=== PATIENT | female | born 1945 | race Caucasian/White ===

== ENCOUNTER → 2025-03-02 | Outpatient (CLI) | payer MEDICARE, BC, SELFPAY ==
--- NOTE | 2025-03-02 09:30 | XR_ITS ---
Examination: Esophagram standard Fluoroscopy 19 spot fluoroscopic films of the esophagus Upright PA chest single view Upright soft tissue lateral neck single view Date and time: March 02, 2025 1003 hours INDICATIONS: Difficulty swallowing with abdominal pain 3 months TECHNIQUE AND FINDINGS: Upright PA chest demonstrates large retrocardiac gastric hernia Soft tissue lateral neck demonstrates cervical fusion C5-C7 with satisfactory alignment, advanced degenerative disc disease C4-C5 Prevertebral soft tissue does appear prominent at the C6 level measuring up to 24 mm Patient swallowed thin barium with marked esophageal dysmotility, secondary and tertiary esophageal contractions and esophageal spasm, moderate intermittent gastroesophageal reflux Large retrocardiac gastric hernia with prominent narrowing at the gastroesophageal junction, up to 80% IMPRESSION: Large retrocardiac gastric hernia Prominent narrowing at the gastroesophageal junction, differential would include reflux esophagitis, consider endoscopy follow-up with specific attention to the distal esophagus Also abnormal prevertebral soft tissue prominence, recommend CT soft tissue neck post intravenous contrast follow-up
== END | disposition home or self-care (01) ==
LOC: CDIM 09:22
PROVIDERS: PCP Family Medicine; Referring Provider Family Medicine; Visit Provider Family Medicine
DX: K46.9 Unspecified abdominal hernia without obstruction or gangrene (principal); K31.89 Other diseases of stomach and duodenum
CPT/HCPCS: 74220; A4699

== ENCOUNTER 2025-08-02 08:00 | Day surgery (SDC) | payer MEDICARE, BC, SELFPAY ==
[2025-08-01 14:55] VITALS: BMI 30.4
[2025-08-02 08:47] VITALS: BP 153/68; PULSE 75; RESP 18; TEMP 36.6; O2SAT 98; BMI 30.7
--- NOTE | 2025-08-02 09:18 | EKG_ITS ---
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
--- NOTE | 2025-08-02 09:50 | SUR.PREOP ---
15 INFORMED OF IRREGULAR HEART RHYTHM. ORDERS 12 LEAD EKG. 924 EKG PERFORMED WITH RESULTS OF A-FIB WITH RVR AND PVC's. INFORMED. ORDERS TO CANCEL PROCEDURE AND TRANSFER PATIENT TO ER FOR FURTHER EVALUATION. DR. MOJICA ORDERS TO LEAVE IV IN PLACE. 929 PATIENT INFORMED OF PLAN, ALL QUESTIONS ANSWERED. 34 [facility] CALLED FOR AMBULANCE TRANSPORT. 935 PER PATIENT'S REQUEST, CALL TO PATIENT'S STEPSON TYESHA DONE TO INFORM HIM OF PLAN. 935 [facility] ER INFORMED OF TRANSFER, REPORT GIVEN TO VETO RIOS. 0945 [facility] ARRIVED TO [facility], PATIENT BEING EVALUATED BY EMS. 0950 REPORT GIVEN TO EMS PERSONNEL LAST NAME ARZOLA. PATIENT LEFT VIA AMBULANCE WITH IV IN PLACE.
--- NOTE | 2025-08-02 09:50 | SUR.PREOP ---
PATIENT BELONGINGS INCLUDING DENTURES SENT WITH PATIENT TO ER, GIVEN TO EMS.
== END 2025-08-02 09:50 | disposition short-term general hospital (02) ==
PROVIDERS: PCP Family Medicine; Referring Provider Specialist; Visit Provider Specialist
PROC: (CPT 43239; principal; 2025-08-02 10:30)
DX: R13.10 Dysphagia, unspecified (principal); R10.13 Epigastric pain; I10 Essential (primary) hypertension; Z79.899 Other long term (current) drug therapy; Z53.8 Procedure and treatment not carried out for other reasons
CPT/HCPCS: 93005

== ENCOUNTER 2025-08-02 09:56 | Inpatient (IN) | payer MEDICARE, BC, SELFPAY ==
[2025-08-02] VITALS (9 sets, daily range): BP systolic 134–163; BP diastolic 76–96; PULSE 76–140; RESP 16–19; TEMP 36.1–36.7; O2SAT 95–97; BMI 30.4; BMI 29.7
--- NOTE | 2025-08-02 10:19 | EKG_ITS ---
[facility] Test Date: 2025-08-02 Pat Name: JOSE GUTIÉRREZ Department: Room: - Gender: Female Grid Maker: : 1945 Requested By: ED Temporary Provider Order Number: [id number] Reading MD: ED Temporary Provider Measurements Intervals [place] Rate: 86 P: IN: QRS: -85 QRSD: 121 T: -23 QT: 338 QTc: 406 Interpretive Statements ATRIAL FIBRILLATION LEFT AXIS DEVIATION [QRS AXIS < -30] RIGHT BUNDLE BRANCH BLOCK [120+ ms QRS DURATION, UPRIGHT V1, 40+ ms S IN I/aVL/V4/V5/V6] Compared to ECG 08/02/2025 10:22:09 Left-axis deviation now present Right-axis deviation no longer present /store/S0/[id number].pdf
[2025-08-02 12:11] LABS: Alanine Aminotransferase 13 U/L (10-49); Albumin, Serum 5.2 gm/dL (3.4-4.8); Albumin/Globulin Ratio 1.5 (1.2-2.2); Alkaline Phosphatase 73 U/L (46-116); Anion Gap 13 (7-16); Aspartate Amino Transferase 27 U/L (0-34); BUN/Creatinine Ratio 14 Ratio (12-20); Bilirubin,Total 0.7 mg/dL (0.3-1.2); Blood Urea Nitrogen 15 mg/dL (9-23); Calcium 10.3 mg/dL (8.3-10.6); Calcium (Corrected) 10.3 mg/dL (8.5-10.1); Carbon Dioxide 25.0 mMol/L (20.0-31.0); Chloride 106 mMol/L (98-107); Creatinine (Component) 1.1 mg/dL (0.6-1.3); Estimated Creatinine Clearance 43.5 mL/min (>60); Globulin 3.5 gm/dL (2.3-3.5); Glucose 88 mg/dL (74-106); Osmolality,Calculated 286 (275-295); Potassium 3.9 mMol/L (3.4-5.1); Sodium 144 mMol/L (136-145); Total Protein 8.7 gm/dL (5.7-8.2); Troponin I < 0.020 ng/mL (0.0-0.045); eGFR 50 See Note
[2025-08-02 12:19] LABS: B-Type Natriuretic Peptide 87 pg/mL (0-100)
[2025-08-02 12:26] LABS: Basophils # (Auto) 0.0 Thou/mm3 (0.0-0.2); Basophils % (Auto) 1 % (0-2.5); Eosinophils # (Auto) 0.1 Thou/mm3 (0.0-0.5); Eosinophils % (Auto) 1 % (0-10); Hematocrit 47.1 % (36.0-46.0); Hemoglobin 15.8 g/dL (12.0-16.0); Immature Granulocytes Auto 0.02 Thou/mm3 (0.00-0.00); Lymphocytes # (Auto) 2.0 Thou/mm3 (1.0-4.8); Lymphocytes % (Auto) 30 % (10-50); Mean Corpuscular HGB Conc 33.5 g/dl (31.0-37.0); Mean Corpuscular Hemoglobin 30.9 pg (25.0-35.0); Mean Corpuscular Volume 92 fL (80-100); Monocytes # (Auto) 0.7 Thou/mm3 (0.0-0.8); Monocytes % (Auto) 10 % (0-12); Neutrophils # (Auto) 3.9 Thou/mm3 (1.8-7.7); Neutrophils % (Auto) 58 % (37-80); Nucleated Red Blood Cell # 0.00 Thou/mm3 (0.00-0.00); Nucleated Red Blood Cell % 0 /100 WBC (0); Platelet Count 201 Thou/mm3 (140-440); RDW Standard Deviation 40.8 fL (36.4-46.3); Red Blood Count 5.11 Miln/mm3 (4.00-5.20); White Blood Count 6.7 Thou/mm3 (3.6-11.0)
[2025-08-02] MEDS: HYDROcodone/APAP 5/325 TABLET 1 TAB PO (15:39)
--- NOTE | 2025-08-02 15:46 | PD.EDARRY ---
ED Arrhythmia Palp. RME/HPI General Chief Complaint: Arrhythmia/Palpitations Stated Complaint: PALPITATIONS Time Seen by Provider: 08/02/25 10:48 Arrival date/time: 08/02/25 09:56 Limitations: no limitations RME / HPI RME / HPI narrative: 80 year old female presents to the ED BIBA from GI Dr. Vazquez's office for evaluation of elevated heart rate and palpitations today. Per medics report, the patient was scheduled to have an EGD by Dr. Vazquez for dysphagia today and prior to the procedure, noted her heart rate to be elevated. A 12-lead EKG performed showing atrial fibrillation. No medications administered en route. In the ED, patient only complains of feeling hungry. Otherwise, no other associated symptoms or complaints reported. Denies fevers, chills, chest pain, cough, shortness of breath. Related Data Home Medications ?Medication ?Instructions ?Recorded ?Confirmed amlodipine 5 mg tablet 5 mg PO QDAY 08/01/25 08/02/25 cinacalcet 60 mg tablet 60 mg PO QDAY 08/01/25 08/02/25 ergocalciferol (vitamin D2) 1,250 1,250 mcg PO QWEEK 08/01/25 08/02/25 mcg (50,000 unit) capsule furosemide 20 mg tablet 20 mg PO QDAY 08/01/25 08/02/25 hydrocodone 10 mg-acetaminophen 1 tab PO Q6H PRN pain 08/01/25 08/02/25 325 mg tablet risedronate 35 mg tablet 35 mg PO QWEEK 08/01/25 08/02/25 Allergies Allergy/AdvReac Type Severity Reaction Status Date / Time No Known Allergies Allergy Verified 08/02/25 10:04 Review of Systems Review of Systems Systems Reviewed: All systems reviewed, normal except as documented Past Medical History Past Medical History CARDIAC: Positive Cardiac Disorders, Hypertension and Varicose Veins RESPIRATORY: Positive Bronchitis GASTROINTESTINAL: Positive Gastrointestinal Disorders (CONSTIPATION, MILD DYSPHAGIA AT TIMES), Diverticulitis, Irritable Bowel, Hiatal Hernia and Obesity GENITOURINARY: Positive Genitourinary Disorders and Renal Disease (BEING FOLLOWED BY UROLOGIST) REPRODUCTIVE: Positive Previous Pregnancies MUSCULOSKELETAL: Positive Musculoskeletal Disorders and Arthritis ENT: Positive Deafness (MILD TRIBE) Surgical History SURGICAL: Positive Hysterectomy; Negative Pacemaker Social History SMOKING STATUS: Never smoker SUBSTANCE USE: does not use ED Exam General Limitations: Present no limitations General appearance: Present alert and in no apparent distress Head Head exam: Present atraumatic, normocephalic and normal inspection Eye Eye exam: Present normal appearance, PERRL and EOMI ENT ENT exam: Present normal exam, normal oropharynx and mucous membranes moist Neck Neck exam: Present normal inspection, full ROM and trachea midline Chest Chest inspection: Present normal inspection and symmetric chest wall rise Respiratory Respiratory exam: Present normal lung sounds bilaterally Cardiovascular Cardiovascular exam: Present tachycardia, irregular rhythm and normal heart sounds Abdominal Exam Abdominal exam: Present soft and normal bowel sounds Extremities Exam Extremities exam: Present normal inspection and full ROM Back Exam Back exam: Present normal inspection and full ROM Neurological Exam Neurological exam: Present alert, oriented X3 and CN II-XII intact Psychiatric Psychiatric exam: Present normal affect and normal mood Skin Skin exam: Present warm, dry, intact and normal color Course Quality Measures none Orders Category Date Time Status COVID-19 Screening Questionnaire NOW Care 08/02/25 15:37 Active Decision to Admit X1 Care 08/02/25 15:37 Completed EKG (ED ONLY) *Do not use* NOW Care 08/02/25 10:19 Completed EKG (ED ONLY) *Do not use* NOW Care 08/02/25 15:24 Completed EKG (ED Only) Stat Exams 08/02/25 10:19 Draft EKG (ED Only) Stat Exams 08/02/25 15:24 Ordered BNP [B-Type Natriuretic Peptide] Stat Lab 08/02/25 10:25 Completed CBC Stat Lab 08/02/25 10:25 Completed CMP [Comprehensive Metabolic Panel] Stat Lab 08/02/25 10:25 Completed TSH [Thyroid Stimulating Hormone] Stat Lab 08/02/25 15:42 Ordered Troponin I Stat Lab 08/02/25 10:25 Completed HYDROcodone*/APAP 5/325 [[place] 5/325] Med 08/02/25 13:59 Discontinued 1 tab PO X1 ONE Vital Signs Vital signs: Vital Signs Temperature 98.0 F 08/02/25 10:09 Pulse Rate 130 H 08/02/25 10:09 Respiratory Rate 18 08/02/25 10:09 Blood Pressure 163/91 H 08/02/25 10:09 Pulse Oximetry (%) 97 08/02/25 10:09 Oxygen Delivery Method Room Air 08/02/25 10:09 Arrhythmia/Palpitations MDM Narrative MDM Narrative:: I, Maria Luisamily Adame, am scribing for and in the presence of Dr. Gamino. I spoke with hospitalist team B for admission. Patient data External records reviewed:: [facility] previous records and EMS form Clinical information provided by:: patient and EMS Social determinants that could affect healthcare access:: none Patient has the following chronic illnesses:: Diabetes How is presenting disease/condition affected by chronic disease/condition?: uneffected by Evaluation data The following diagnostics were reviewed and interpreted by me:: lab results, radiology exam(s) and EKG tracing(s) (EKG @ 1022a shows atrial fibrillation with RVR, rate 126, right bundle branch block. EKG @ 1527p. Atrial fibrillation, rate 86, right bundle branch block. ) Lab and/or radiology exams considered but not ordered:: None Interpretation Summary: Ordering Physician: Jakob Mcguire Date of Service: 08/02/25 Procedure(s): XR chest 1V portable Accession Number(s): [id number] cc: Jakob Mcguire; Dane Conroy MD; Ross Álvarez MD~ EXAMINATION: AP chest single view TECHNIQUE: AP portable upright chest single view Date and time: August 02, 2025, 1619 hours, comparison January 10, 2021 INDICATIONS: Chest pain shortness of breath today. FINDINGS: Retrocardiac gastric hernia Mild prominence cardiac contour Mild vascular congestion. No lobar pneumonia or pulmonary edema Suspicious for 8 mm nodule left upper lobe Prominent osteopenia IMPRESSION: Mild vascular congestion. No lobar pneumonia. Recommend AP lordotic chest follow-up to exclude 8 mm pulmonary nodule left upper lobe Dictated By: Dane Conroy MD Signed By: <Electronically signed by Dane Conroy MD in OV> 08/02/25 1652 Medications / Prescriptions Medications or Prescriptions considered but not ordered:: None Medication administrations:: Medication Administration History Discontinued Medications Hydrocodone Bitart/Acetaminophen (Hydrocodone/Apap 5/325 Tablet) 1 tab PO X1 ONE Stop: 08/02/25 14:00 Last Admin: 08/02/25 15:39 Dose: 1 tab Documented By: AA Consultations Consultation(s) initiated? (list below): Yes Consultation #1 (Physician, Specialty, Details): See above Diagnosis Most likely diagnosis given after review of the tests above:: New onset atrial fibrillation Admission Indicated Admission indicated?: indicated Admission Request Was there a request for admission?: Yes Admission Attestation Admission request attestation: Discussed case with [] from Hospitalist service regarding admission. Discussed patients ED course, exam findings, labs, and radiology results. The Hospitalist [agrees,declines] to accept the patient for admission. Disposition Plan Disposition Plan: Admit Discharge Plan Plan Patient Disposition: Admit Acute Care w/in Hospital Problem List Clinical Impression: New onset a-fib
[2025-08-02 16:09] LABS: Thyroid Stimulating Hormone 3.31 uIU/mL (0.55-4.78)
--- NOTE | 2025-08-02 16:10 | XR_ITS ---
EXAMINATION: AP chest single view TECHNIQUE: AP portable upright chest single view Date and time: August 02, 2025, 1619 hours, comparison January 10, 2021 INDICATIONS: Chest pain shortness of breath today. FINDINGS: Retrocardiac gastric hernia Mild prominence cardiac contour Mild vascular congestion. No lobar pneumonia or pulmonary edema Suspicious for 8 mm nodule left upper lobe Prominent osteopenia IMPRESSION: Mild vascular congestion. No lobar pneumonia. Recommend AP lordotic chest follow-up to exclude 8 mm pulmonary nodule left upper lobe
[2025-08-02 16:31] LABS: Collection Type, Urine Clean Catch
--- NOTE | 2025-08-02 16:36 | ECHO_ITS ---
Transthoracic Echo Report Ht (in): 66 Wt (lb): 189 Exam Location: Echo Lab Status: Inpatient Voltage Tester: Marisol Mcduffie Indications: Procedure Performed: BP: 110 / 69 HR: 48 MEASUREMENTS (Male / Female) Normal Values 2D ECHO LV Diastolic Diameter PLAX 3.8 cm 4.2 - 5.9 / 3.9 - 5.3 cm LV Systolic Diameter PLAX 2.7 cm IVS Diastolic Thickness 1.1 cm 0.6 - 1.0 / 0.6 - 0.9 cm LVPW Diastolic Thickness 1.0 cm 0.6 - 1.0 / 0.6 - 0.9 cm LV Relative Wall Thickness 0.6 LVOT Diameter 1.8 cm Aortic Root Diameter 3.1 cm LV Ejection Fraction MOD BP 62.4 % >= 55 % LV Cardiac Index MOD BP 1021.8 cm?/min?m? LV Ejection Fraction MOD 4C 64.8 % LV Cardiac Index MOD 4C 1014.7 cm?/min?m? LV Ejection Fraction 4C AL 66.0 % LV Cardiac Index 4C AL 1068.5 cm?/min?m? LV Ejection Fraction MOD 2C 60.2 % LV Cardiac Index MOD 2C 1026.5 cm?/min?m? LV Ejection Fraction 2C AL 61.9 % LV Cardiac Index 2C AL 1108.5 cm?/min?m? LA Volume Index 29.1 cm?/m? 16 - 28 cm?/m? M-MODE Aortic Root Diameter MM 2.5 cm AV Cusp Separation MM 1.7 cm DOPPLER AV Peak Velocity 158.0 cm/s AV Peak Gradient 10.0 mmHg AV Mean Gradient 5.0 mmHg AV Velocity Time Integral 33.2 cm LVOT Peak Velocity 100.0 cm/s LVOT Peak Gradient 4.0 mmHg LVOT Velocity Time Integral 21.4 cm LVOT Cardiac Index 1291.0 cm?/min?m? AV Area Cont Eq vti 1.6 cm? AV Area Cont Eq pk 1.6 cm? MV Peak Velocity 145.0 cm/s MV Peak Gradient 8.4 mmHg MV Mean Velocity 81.4 cm/s MV Mean Gradient 3.0 mmHg LV E' Lateral Velocity 7.7 cm/s LV E' Septal Velocity 8.9 cm/s TR Peak Velocity 227.0 cm/s TR Peak Gradient 20.6 mmHg FINDINGS Left Ventricle Normal left ventricular size, wall thickness, systolic function with no obvious regional wall motion abnormalities. Unble to evaluate diastolic function due to atrial fibirllation. The ejection fraction is visually estimated at 65 %. Right Ventricle The right ventricular size is mildy increased with normal systolic function. Left Atrium The left atrium is normal by two-dimensional, color flow and Doppler imaging with no structural abnormalities, no thrombus formation present. Right Atrium The right atrium is normal by two-dimensional imaging, color flow and Doppler imaging with no structural abnormalities, no thrombus formation present. Atrial Septum The interatrial septum appears normal with no evidence of a shunt. Aorta The aorta is normal by two-dimensional, color flow and Doppler interrogation. Mitral Valve Mild mitral annular calcification. Trace mitral regurgitation. Aortic Valve The aortic valve is not well visualized. Tricuspid Valve The tricuspid valve is normal by two-dimensional, color flow and Doppler interrogation. There is mild tricuspid valve regurgitation. Pulmonic Valve The pulmonic valve is not well visualized. There is no significant pulmonic valve regurgitation. Vessels Inferior vena cava not well visualized. Pericardium The pericardium is normal by two-dimensional imaging. There is no significant pericardial effusion. CONCLUSIONS Indication: A fib with RVR Normal LV size. Unble to evaluate diastolic function due to atrial fibirllation. Estimated EF at 65%. The RV size is mildy increased with normal systolic function. Mild MAC. Trace MR. Mild TR. Katrina Roy (Electronically Signed) Final Date: 04 August 2025 12:05
--- NOTE | 2025-08-02 16:37 | ESHP_ITS ---
<Statement entered by Tod Romero MD - 08/02/25 18:27> 80-year-old female with past medical history of [id number] type 2 diabetes, chronic back pain, chronic kidney disease, hypertension presenting to the ED after she was noted to be in atrial fibrillation during prescheduled endoscopy for dysphagia. Patient states that she has been having some bilateral chest discomfort underneath her breasts which have been ongoing for several weeks. Patient does state that this sensation is worsened after eating and so she had scheduled endoscopy which was canceled due to patient developing atrial fibrillation. Patient also follows up with Dr. Hassan in the past and states that in 2021 workup was largely negative for any cardiac etiology. Patient will be admitted and started on metoprolol succinate along with amiodarone for A-fib RVR and echo with cardiology consult has been placed. Will continue monitoring the patient for any acute changes. I have personally seen and examined the patient. I agree with the resident's assessment and plan as documented below. Tod Romero DO PGY-2 Internal Medicine - [facility] Documentation for date of: 08/02/25 HPI History of Present Illness History of present illness: History of Present Illness: Mnedy Sanabria is a 80-year-old female with past medical history of type 2 diabetes and chronic back pain presented to ED on 08/02/2025, due to new onset A.fib with RVR. Originally, she was scheduled for EGD with possible biopsy for symptoms of dysphagia at Dr. Vazquez's office, however EKG revealed A-fib with RVR. Patient reports sensation of bloating and difficulty swallowing (both solids and liquids), describing that ingestion does not go down smoothly. She also noticed intermittent sharp epigastric chest discomfort after meals, which resolves following burping, particularly after drinking carbonated beverages such as cola. Patient noted she received unknown surgical procedure on her heart from her Metal Polisher, Dr. Mo Anaya in 2020, which she can't remember what that was for. She was asymptomatic at the time of examination. She denied any signs of chest pain, palpitation, shortness of breath, orthopnea, and PND. She is a poor historian in terms of her medical status. Patient will be admitted for management of her A.fib with RVR ED course: Vitals: 153/68, RI:130 RR 18, Temp 97.9F, 98% O2 sat on room air. Labs: WBC 6.7, Hgb 15.8, sodium 144, potassium 3.9, BUN 15, creatinine 1.1, eGFR 50, corrected calcium 10.3, glucose 88, troponin<0.020, BMP 87, TSH 3.31. EKG: Atrial fibrillation with RVR, rate 126, right bundle branch block. EKG @ 1527p. Atrial fibrillation, rate 86, right bundle branch block. CXR (08/02/2025): Mild vascular congestion. No lobar pneumonia. Recommend AP lordotic chest follow-up to exclude 8 mm pulmonary nodule left upper lobe Medical history: As stated above Surgical history: Denies Allergies: NKDA Medications: Amlodipine 5mg, Furosemide 20mg Vitamins. Pending official med rec Family history: Brother due to Heart valve problem Social history: Denies smoking cigarettes, drinking alcohol or using other illicit drugs Review of Systems Review of Systems Narrative Review of Systems: All 12 systems assessed and the patient denies unless otherwise stated in HPI Exam Vital Signs Temp Pulse Resp BP Pulse Ox O2 Del Method 97.8 F 82 16 134/85 H 95 Room Air 08/02/25 15:10 08/02/25 15:10 08/02/25 15:10 08/02/25 15:10 08/02/25 15:10 08/02/25 15:10 Narrative Exam General: No acute distress, well nourished, AAO x3 Eye: PERRL, EOMI, normal conjunctiva, no scleral icterus HENT: Normocephalic, atraumatic, hearing intact to conversation at normal volume, moist oral mucosa Neck: Supple, non-tender, no JVD, no lymphadenopathy Lungs: Non-labored respirations, symmetric chest rise, Clear to auscultate bilaterally, No wheezing, rhonchi, crackles Heart: Peripheral pulses intact bilaterally, Irregular rate, No murmurs Abdomen: Soft, non-tender, non-distended, no palpable masses Musculoskeletal: Normal range of motion and strength, No cyanosis or edema, No visible joint swelling Skin: Skin is warm, dry, bilateral LE rashes Psychiatric: Cooperative, appropriate mood and affect, Awake and alert, not agitated Neuro: Cranial nerves II-XII grossly intact. Strength 5/5 throughout. Sensations intact to light touch. Results: Labs 08/03/25 05:10 08/03/25 05:10 Labs: Short CBC 08/02/25 Range/Units 10:25 WBC 6.7 (3.6-11.0) Thou/mm3 Hgb 15.8 (12.0-16.0) g/dL Hct 47.1 H (36.0-46.0) % Plt Count 201 (140-440) Thou/mm3 BMP 08/02/25 10:25 Sodium 144 Potassium 3.9 Chloride 106 Carbon Dioxide 25.0 BUN 15 Creatinine 1.1 Glucose 88 Calcium 10.3 Cardiac Enzymes 08/02/25 Range/Units 10: Troponin I < 0.020 (0.0-0.045) ng/mL Liver Function 08/02/25 Range/Units 10:25 Total Bilirubin 0.7 (0.3-1.2) mg/dL AST 27 (0-34) U/L ALT 13 (10-49) U/L Alkaline Phosphatase 73 (46-116) U/L Albumin 5.2 H (3.4-4.8) gm/dL Quality Measures Quality Measures VTE prophylaxis Advance care planning discussed with:: patient Medications Home Medications and Allergies Home Medications ?Medication ?Instructions ?Recorded ?Confirmed ?Type amlodipine 5 mg tablet 5 mg PO QDAY 08/01/25 History cinacalcet 60 mg tablet 30 mg PO QDAY 08/01/2508/02 History ergocalciferol (vitamin D2) 1,250 1,250 mcg PO QWEEK 1 08/02/25 History mcg (50,000 unit) capsule furosemide 20 mg tablet 20 mg PO QDAY 08/01/2508/02 History hydrocodone 10 mg-acetaminophen 1 tab PO Q6H PRN pain 08/01/25 08/02/25 History 325 mg tablet risedronate 35 mg tablet 35 mg PO QWEEK 08/01/2507/19 History Allergies Allergy/AdvReac Type Severity Reaction Status Date / Time No Known Allergies Allergy Verified 08/02/25 10:04 Visit Medications Acetaminophen (Acetaminophen 325 Mg Tablet) 650 mg PO Q6H PRN PRN Reason: Fever >101.5 Stop: 09/01/25 16:05 Acetaminophen (Acetaminophen 325 Mg Tablet) 650 mg PO Q6H PRN PRN Reason: PAIN SCALE 1-3 (mild Stop: 09/01/25 16:05 Al Hydrox/Mg Hydrox/Simethicone (Mg Hyd/Al Hyd/Myke (Maalox Reg) Susp 30 Ml Udc) 30 ml PO Q6H PRN PRN Reason: Indigestion Stop: 09/01/25 16:05 Apixaban (Apixaban 2.5 Mg Tablet) 2.5 mg PO BID CHARLIE Stop: 09/01/25 20:59 Metoprolol Succinate (Metoprolol Succinate Xl 25 Mg Tabcr) 25 mg PO BID CHARLIE Stop: 09/01/25 20:59 Ondansetron HCl (Ondansetron Inj 2 Mg/Ml Inj 2 Ml) 4 mg IVP Q6H PRN; Protocol PRN Reason: NAUSEA OR VOMITING Stop: 09/01/25 16:05 Discontinued Medications Hydrocodone Bitart/Acetaminophen (Hydrocodone/Apap 5/325 Tablet) 1 tab PO X1 ONE Stop: 08/02/25 14:00 Last Admin: 08/02/25 15:39 Dose: 1 tab Assessment & Plan Plan Ms. Trever Olivas is a 80-year-old female with past medical history of type 2 diabetes and chronic back pain presented to ED on 08/02/2025, by new onset A fib with RVR. Originally, she went for an endoscopy with Dr. Vazquez; however, telemetry during prescheduled procedure revealed A-fib with RVR. Patient will be admitted for management of her A.fib with RVR. She is a poor historian in terms of her medical status. #Atrial fibrillation with RVR -EKG revealed Atrial fibrillation with RVR, rate 126, right bundle branch block. EKG @ 1527p. Atrial fibrillation, rate 86, right bundle branch block. -Home medication: Med rec pending. -On admission, corrected calcium 10.3, glucose 88, troponin<0.020, BMP 87, TSH 3.31. -Patient was asymptomatic on admission. -CHADsVASc score 5 ; 7.2% risk of stroke/ TIA/systemic embolism -HASBLED score 2 ; Moderate risk of major bleeding Plan: -Currently rate controlled with Metoprolol Succinate 25 mg po qd, Rhythm control amiodarone 200mg po bid, anticoagulation Eliquis 5mg po bid. -Continue to monitor on telemetry -ECHO ordered -Consulted Cardiology, Dr. Mo Anaya, appreciate recommendations. -Strict ins and out #Esophageal dysphagia -Sensation of food not going down, with epigastric chest discomfort on eating. -Ddx: GERD, stictures, Schatzki ring -Patient's vital is stable and asymptomic. No episodes of choking. Plan: -Possible EGD -Consulted GI, Dr. Vazquez, appreciate recommendations #Non-insulin dependent type 2 diabetes -No A1c on file -Patient not on any insulin or oral diabetes medication -On admission, Glucose: 88 Plan: -Follow-up on morning A1c #8 mm pulmonary nodule left upper lobe -CXR (08/02/2025): Mild vascular congestion. No lobar pneumonia. Recommend AP lordotic chest follow-up to exclude 8 mm pulmonary nodule left upper lobe -F/u outpatient Disposition: Telemetry for A.fib with RVR Diet: Low Carb consistent Diet GI prophylaxis: Maalox DVT prophylaxis: SCD Code: FULL Assessment and plan discussed with my attending physician Dr. Kate and Dr. Romero (PGY-2) Dr. Mcguire (PGY-1) - Internal medicine resident Attending Provider Attestation/Addendum I reviewed labs, imaging, EKG, home medications and prior available records. Face to face evaluation was performed by me. I have personally examined the patient and discussed assessment and plan with the IM team. I reviewed the resident note and agree with the plan with exceptions as below. Atrial fibrillation with RVR Essential hypertension Chronic pain Admit to obs/telemetry Start metoprolol XL Ordered echocardiogram Consulted cardiology
[2025-08-02 16:41] LABS: Bacteria,Urine Rare; Bilirubin,Urine Negative (Negative); Blood,Urine Negative (Negative); Clarity,Urine Clear (Clear/Hazy); Color,Urine Colorless (Lt Yel-Yel); Glucose, Urine Negative (Negative); Ketones,Urine Negative (Negative); Leukocyte Esterase,Urine Negative (Negative); Nitrite,Urine Negative (Negative); PH,Urine 8.0 (5.0-7.0); Protein,Urine Negative (Neg - Trace); RBC,Urine 1 /hpf (0-3); Specific Gravity,Urine 1.009 (1.001-1.035); Squamous Epithelial Cell,Urine < 1 /hpf (0-5); Urobilinogen,Urine Negative mg/dL (0.0-1.0); WBC,Urine 2 /hpf (0-5)
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
[2025-08-02 17:05] LABS: Troponin I < 0.020 ng/mL (0.0-0.045)
[2025-08-02] MEDS: METOPROLOL SUCCINATE XL 25 MG TABCR PO (17:34)
--- NOTE | 2025-08-02 17:40 | PC.NURSE ---
Dr. Hassan at bedside for consultation.
--- NOTE | 2025-08-02 20:12 | PC.NURSE ---
DR. YUNIOR ROBERTO, POC DISCUSSED WITH PATIENT. ALL QUESTIONS ANSWER.
--- NOTE | 2025-08-02 20:58 | PD.IMCONS ---
HPI Data of Consult Requesting Physician: Reji Kate MD Primary Care Provider: Ross Álvarez MD Consult Narrative Reason for consult: New onset of atrial fibrillation History of present illness: 80 is a female who came to the [facility] department this morning as an elective outpatient prescheduled upper endoscopy for symptoms of dysphagia and dyspepsia Once patient was brought into the endoscopy suite and looked at the monitor it appeared irregular and wide-complex appeared to be atrial fibrillation with possibly bundle branch block pattern I ordered a twelve-lead EKG which confirmed my above suspicion Canceled the elective procedure and send the patient to the emergency room Heart rate was in the 120s to 130s On the EKG done 12-lead it was 113 cc:: cc: Reji Kate MD Past Medical History Surgical History OTHER SURGICAL HX: Essential hypertension Meds Home Medications and Allergies Home Medications ?Medication ?Instructions ?Recorded ?Confirmed ?Type amlodipine 5 mg tablet 5 mg PO QDAY 08/01/25 08/02/25 History cinacalcet 60 mg tablet 30 mg PO QDAY 08/01/25 08/02/25 History ergocalciferol (vitamin D2) 1,250 1,250 mcg PO QWEEK 08/01/25 08/02/25 History mcg (50,000 unit) capsule furosemide 20 mg tablet 20 mg PO QDAY 08/01/25 08/02/25 History hydrocodone 10 mg-acetaminophen 1 tab PO Q6H PRN pain 08/01/25 08/02/25 History 325 mg tablet risedronate 35 mg tablet 35 mg PO QWEEK 08/01/25 08/02/25 History Allergies Allergy/AdvReac Type Severity Reaction Status Date / Time No Known Allergies Allergy Verified 08/02/25 10:04 Exam Vital Signs Temp Pulse Resp BP Pulse Ox O2 Del Method 97.5 F 118 H 18 142/96 H 96 Room Air 08/02/25 18:14 08/02/25 18:14 08/02/25 18:14 08/02/25 18:14 08/02/25 18:14 08/02/25 18:14 Results Labs 08/02/25 10:25 08/02/25 10:25 Labs: Short CBC 08/02/25 Range/Units 10: WBC 6.7 (3.6-11.0) Thou/mm3 Hgb 15.8 (12.0-16.0) g/dL Hct 47.1 H (36.0-46.0) % Plt Count 201 (140-440) Thou/mm3 BMP 08/02/25 10:25 Sodium 144 Potassium 3.9 Chloride 106 Carbon Dioxide 25.0 BUN 15 Creatinine 1.1 Glucose 88 Calcium 10.3 Cardiac Enzymes 08/02/25 08/02/25 Range/Units 10:25 16:36 Troponin I < 0.020 < 0.020 (0.0-0.045) ng/mL Liver Function 08/02/25 Range/Units 10:25 Total Bilirubin 0.7 (0.3-1.2) mg/dL AST 27 (0-34) U/L ALT 13 (10-49) U/L Alkaline Phosphatase 73 (46-116) U/L Albumin 5.2 H (3.4-4.8) gm/dL Urine 08/02/25 Range/Units 16:20 Urine Color Colorless A (Lt Yel-Yel) Urine Clarity Clear (Clear/Hazy) Urine pH 8.0 H (5.0-7.0) Ur Specific [place] 1.009 (1.001-1.035) Urine Protein Negative (Neg - Trace) Urine Glucose (UA) Negative (Negative) Assessment and Plan Additional Assessment & Plan Additional Plan: # New onset of cardiac arrhythmias in the form of atrial fibrillation with RVR Plan Called the ambulance to transfer the patient to the emergency room where she got subsequently admitted Procedure was canceled They will reschedule the procedure as an outpatient Other medical problems include Dysphagia Dyspepsia Essential hypertension Thank you very much for the opportunity to participate in care of this patient
[2025-08-02] MEDS: APIXABAN 2.5 MG TABLET 5 MG PO (21:01)
[2025-08-02] MEDS: AMIODARONE HCL 200 MG TABLET PO (21:02)
[2025-08-02] MEDS: FAMOTIDINE INJ 10 MG/ML VIAL 2 ML 20 MG IVP (22:57)
[2025-08-03] VITALS (9 sets, daily range): BP systolic 107–125; BP diastolic 57–75; PULSE 48–79; RESP 17–23; TEMP 36.1–36.6; O2SAT 95–98
[2025-08-03 05:37] LABS: Basophils # (Auto) 0.0 Thou/mm3 (0.0-0.2); Basophils % (Auto) 1 % (0-2.5); Eosinophils # (Auto) 0.1 Thou/mm3 (0.0-0.5); Eosinophils % (Auto) 2 % (0-10); Hematocrit 39.8 % (36.0-46.0); Hemoglobin 13.5 g/dL (12.0-16.0); Immature Granulocytes Auto 0.02 Thou/mm3 (0.00-0.00); Lymphocytes # (Auto) 1.9 Thou/mm3 (1.0-4.8); Lymphocytes % (Auto) 22 % (10-50); Mean Corpuscular HGB Conc 33.9 g/dl (31.0-37.0); Mean Corpuscular Hemoglobin 31.3 pg (25.0-35.0); Mean Corpuscular Volume 92 fL (80-100); Monocytes # (Auto) 1.0 Thou/mm3 (0.0-0.8); Monocytes % (Auto) 11 % (0-12); Neutrophils # (Auto) 5.7 Thou/mm3 (1.8-7.7); Neutrophils % (Auto) 65 % (37-80); Nucleated Red Blood Cell # 0.00 Thou/mm3 (0.00-0.00); Nucleated Red Blood Cell % 0 /100 WBC (0); Platelet Count 194 Thou/mm3 (140-440); RDW Standard Deviation 40.8 fL (36.4-46.3); Red Blood Count 4.32 Miln/mm3 (4.00-5.20); White Blood Count 8.7 Thou/mm3 (3.6-11.0)
[2025-08-03 05:52] LABS: INR 1.1 (0.9-1.3); Partial Thromboplastin Time 30.8 Seconds (22.0-36.0); Prothrombin Time 11.5 Seconds (9.0-12.2)
[2025-08-03 06:05] LABS: Glucose Estimated Average 103 mg/dL (80-131); Hemoglobin A1C 5.2 % Hgb (4.8-6.0)
[2025-08-03 06:33] LABS: Alanine Aminotransferase 7 U/L (10-49); Albumin, Serum 3.8 gm/dL (3.4-4.8); Albumin/Globulin Ratio 1.4 (1.2-2.2); Alkaline Phosphatase 57 U/L (46-116); Anion Gap 9 (7-16); Aspartate Amino Transferase 18 U/L (0-34); BUN/Creatinine Ratio 15 Ratio (12-20); Bilirubin,Total 0.7 mg/dL (0.3-1.2); Blood Urea Nitrogen 15 mg/dL (9-23); Calcium 9.3 mg/dL (8.3-10.6); Calcium (Corrected) 9.5 mg/dL (8.5-10.1); Carbon Dioxide 25.2 mMol/L (20.0-31.0); Chloride 107 mMol/L (98-107); Creatinine (Component) 1.0 mg/dL (0.6-1.3); Estimated Creatinine Clearance 47.4 mL/min (>60); Globulin 2.8 gm/dL (2.3-3.5); Glucose 95 mg/dL (74-106); Magnesium 2.1 mg/dL (1.6-2.6); Osmolality,Calculated 282 (275-295); Phosphorous 3.6 mg/dL (2.4-5.1); Potassium 4.6 mMol/L (3.4-5.1); Sodium 141 mMol/L (136-145); Total Protein 6.6 gm/dL (5.7-8.2); eGFR 56 See Note
[2025-08-03] MEDS: APIXABAN 2.5 MG TABLET 5 MG PO (08:11)
[2025-08-03] MEDS: METOPROLOL SUCCINATE XL 25 MG TABCR PO (08:11)
[2025-08-03] MEDS: FAMOTIDINE INJ 10 MG/ML VIAL 2 ML 20 MG IVP (08:12)
[2025-08-03] MEDS: AMIODARONE HCL 200 MG TABLET PO (08:12)
--- NOTE | 2025-08-03 11:37 | PD.RESPRO ---
Documentation for date of: 08/03/25 Subjective Subjective Interval history: No Overnight events. Labs reviewed and patient examined at the bedside. Patient currently pending echo. Telemetry noted patient had an episode of A-fib with bradycardia of 48 pulse rate at around 3:30 PM today 08/03. Currently patient is asymptomatic, denies any dizziness headaches or chest pain. Will continue to monitor. Denies SOB, abdominal pain, N/V, fevers or chills. Exam Vital Signs Temp Pulse Resp BP Pulse Ox O2 Del Method 97.7 F 74 22 H 123/75 95 Room Air 08/03/25 08:00 08/03/25 08:12 08/03/25 08:00 08/03/25 08:12 08/03/25 08:00 08/03/25 08:00 Narrative Exam General: No acute distress, well nourished, AAO x3 Eye: PERRL, EOMI, normal conjunctiva, no scleral icterus HENT: Normocephalic, atraumatic, hearing intact to conversation at normal volume, moist oral mucosa Neck: Supple, non-tender, no JVD, no lymphadenopathy Lungs: Non-labored respirations, symmetric chest rise, Clear to auscultate bilaterally, No wheezing, rhonchi, crackles Heart: Peripheral pulses intact bilaterally, Irregular rate, No murmurs Abdomen: Soft, non-tender, non-distended, no palpable masses Musculoskeletal: Normal range of motion and strength, No cyanosis or edema, No visible joint swelling Skin: Skin is warm, dry, bilateral LE rashes Psychiatric: Cooperative, appropriate mood and affect, Awake and alert, not agitated Neuro: Cranial nerves II-XII grossly intact. Strength 5/5 throughout. Sensations intact to light touch. Objective Labs 08/03/25 05:10 08/03/25 05:10 Labs: Laboratory Results - last 24 hr 08/02/25 08/02/25 08/02/25 10: 16:20 16:36 WBC 6.7 RBC 5.11 Hgb 15.8 Hct 47.1 H MCV 92 MCH 30.9 MCHC 33.5 RDW Std Deviation 40.8 Plt Count 201 Neut % (Auto) 58 Lymph % (Auto) 30 Ray % (Auto) 10 Eos % (Auto) 1 Baso % (Auto) 1 Neut # (Auto) 3.9 Lymph # (Auto) 2.0 Ray # (Auto) 0.7 Eos # (Auto) 0.1 Baso # (Auto) 0.0 Immature Gran # (Auto) 0.02 H Absolute Nucleated RBC 0.00 Immature Gran % 0 Nucleated RBC % 0 PT INR APTT Sodium 144 Potassium 3.9 Chloride 106 Carbon Dioxide 25.0 Anion Gap 13 BUN 15 Creatinine 1.1 Estim Creat Clear Calc 43.5 L eGFR 50 L BUN/Creatinine Ratio [address] Glu mg/dL Hemoglobin A1c Calculated Osmolality 286 Calcium 10.3 Corrected Calcium 10.3 H Phosphorus Magnesium Total Bilirubin 0.7 AST 27 ALT 13 Alkaline Phosphatase 73 Troponin I < 0.020 < 0.020 B-Natriuretic Peptide 87 Total Protein 8.7 H Albumin 5.2 H Globulin 3.5 Albumin/Globulin Ratio 1.5 TSH 3.31 Ur Collection Type Clean Catch Urine Color Colorless A Urine Clarity Clear Urine pH 8.0 H Ur Specific [place] 1.009 Urine Protein Negative Urine Glucose (UA) Negative Urine Ketones Negative Urine Blood Negative Urine Nitrite Negative Urine Bilirubin Negative Urine Urobilinogen (Auto) Negative Ur Leukocyte Esterase Negative Urine RBC 1 Urine WBC 2 Ur Squamous Epith Cells < 1 Urine Bacteria Rare 08/03/25 05:10 WBC 8.7 RBC 4.32 Hgb 13.5 D Hct 39.8 MCV 92 MCH 31.3 MCHC 33.9 RDW Std Deviation 40.8 Plt Count 194 Neut % (Auto) 65 Lymph % (Auto) 22 Ray % (Auto) 11 Eos % (Auto) 2 Baso % (Auto) 1 Neut # (Auto) 5.7 Lymph # (Auto) 1.9 Ray # (Auto) 1.0 H Eos # (Auto) 0.1 Baso # (Auto) 0.0 Immature Gran # (Auto) 0.02 H Absolute Nucleated RBC 0.00 Immature Gran % 0 Nucleated RBC % 0 PT 11.5 INR 1.1 APTT 30.8 Sodium 141 Potassium 4.6 D Chloride 107 Carbon Dioxide 25.2 Anion Gap 9 BUN 15 Creatinine 1.0 Estim Creat Clear Calc 47.4 L eGFR 56 L BUN/Creatinine Ratio [address] Glu mg/dL 103 Hemoglobin A1c 5.2 Calculated Osmolality 282 Calcium 9.3 Corrected Calcium 9.5 Phosphorus 3.6 Magnesium 2.1 Total Bilirubin 0.7 AST 18 ALT 7 L Alkaline Phosphatase 57 D Troponin I B-Natriuretic Peptide Total Protein 6.6 Albumin 3.8 D Globulin 2.8 Albumin/Globulin Ratio 1.4 TSH Ur Collection Type Urine Color Urine Clarity Urine pH Ur Specific [place] Urine Protein Urine Glucose (UA) Urine Ketones Urine Blood Urine Nitrite Urine Bilirubin Urine Urobilinogen (Auto) Ur Leukocyte Esterase Urine RBC Urine WBC Ur Squamous Epith Cells Urine Bacteria Quality Measures Quality Measures VTE prophylaxis Advance care planning discussed with:: patient Assessment & Plan Assessment Current Active Medications: Generic Name Dose Route Start Last Admin Trade Name Freq PRN Reason Stop Dose Admin Acetaminophen 650 mg 08/02/25 16:06 Acetaminophen 325 Mg Tablet PO 09/01/25 16:05 Q6H PRN Fever >101.5 Acetaminophen 650 mg 08/02/25 16:06 Acetaminophen 325 Mg Tablet PO 09/01/25 16:05 Q6H PRN PAIN SCALE 1-3 (mild Hydrocodone Bitart/Acetaminophen 1 tab 08/03/25 00:34 08/03/25 01:06 Hydrocodone/Apap 10/325 Tab PO 08/08/25 00:33 1 tab Q6HR PRN Administration PAIN SCALE 4-10(Mod-Sev Al Hydrox/Mg Hydrox/Simethicone 30 ml 08/02/25 16:06 Mg Hyd/Al Hyd/Myke (Maalox Reg) Susp 30 Ml Udc PO 09/01/25 16:05 Q6H PRN Indigestion Amiodarone HCl 200 mg 08/02/25 21:00 08/03/25 08:12 Amiodarone Hcl 200 Mg Tablet PO 08/16/25 20:59 200 mg BID CHARLIE Administration Apixaban 5 mg 08/02/25 21:00 08/03/25 08:11 Apixaban 2.5 Mg Tablet PO 09/01/25 20:59 5 mg BID CHARLIE Administration Famotidine 20 mg 08/03/25 21:00 Famotidine 20 Mg Tablet PO 09/02/25 20:59 BID CHARLIE Protocol Metoprolol Succinate 25 mg 08/03/25 07:43 08/03/25 08:11 Metoprolol Succinate Xl 25 Mg Tabcr PO 09/01/25 16:44 25 mg QDAY CHARLIE Administration Ondansetron HCl 4 mg 08/02/25 16:06 Ondansetron Inj 2 Mg/Ml Inj 2 Ml IVP 09/01/25 16:05 Q6H PRN NAUSEA OR VOMITING Protocol Plan Ms. Trever Olivas is a 80-year-old female with past medical history of type 2 diabetes and chronic back pain presented to ED on 08/02/2025, by new onset A fib with RVR. Originally, she went for an endoscopy with Dr. Vazquez; however, telemetry during prescheduled procedure revealed A-fib with RVR. Patient will be admitted for management of her A.fib with RVR. She is a poor historian in terms of her medical status. #Atrial fibrillation with RVR -EKG revealed Atrial fibrillation with RVR, rate 126, right bundle branch block. EKG @ 1527p. Atrial fibrillation, rate 86, right bundle branch block. -Home medication: Med rec pending. -On admission, corrected calcium 10.3, glucose 88, troponin<0.020, BMP 87, TSH 3.31. -Patient was asymptomatic on admission. -CHADsVASc score 5 ; 7.2% risk of stroke/ TIA/systemic embolism -HASBLED score 2 ; Moderate risk of major bleeding Plan: -Currently rate controlled with Metoprolol Succinate 25 mg po qd, Rhythm control amiodarone 200mg po bid, anticoagulation Eliquis 5mg po bid. -Continue to monitor on telemetry -ECHO ordered -Consulted Cardiology, Dr. Mo Anaya, appreciate recommendations. -Strict ins and out #Esophageal dysphagia -Sensation of food not going down, with epigastric chest discomfort on eating. -Ddx: GERD, stictures, Schatzki ring -Patient's vital is stable and asymptomic. No episodes of choking. Plan: -Possible EGD -Consulted GI, Dr. Vazquez, appreciate recommendations #Non-insulin dependent type 2 diabetes -No A1c on file -Patient not on any insulin or oral diabetes medication -On admission, Glucose: 88 Plan: -Follow-up on morning A1c #8 mm pulmonary nodule left upper lobe -CXR (08/02/2025): Mild vascular congestion. No lobar pneumonia. Recommend AP lordotic chest follow-up to exclude 8 mm pulmonary nodule left upper lobe -F/u outpatient Disposition: Telemetry for A.fib with RVR Diet: Low Carb consistent Diet GI prophylaxis: Maalox DVT prophylaxis: SCD Code: FULL Assessment and plan discussed with my attending physician Dr. May Mcguire (PGY-1) - Internal medicine resident
--- NOTE | 2025-08-03 11:52 | PC.SS ---
Mendy Perera is a 80-year-old female admitted to [facility] for New Onset Afib. SS conducted bedside contact with the patient to complete initial assessment and to discuss discharge planning. Role and reason explained. Patient confirmed demographic information. Patient identifies her grandson Dmitriy Hodgson [phone] as her surrogate decision maker. Pt states she is able to complete all ADL?s independently. Pt has a rollator walker. Pts PCP is Dr. Álvarez (last visit on 07/26/25). Pharmacy of choice [facility]. Discharge options discussed and the pt wishes to return home.? Family will provide transportation upon DC. No further intervention required at this time, social work lecturer would be available to address any further concerns. DC Plan: Home Contact: Dmitriy Tinajero Address: Confirmed on face sheet PCP: Henri
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
--- NOTE | 2025-08-03 17:21 | PD.RESDS ---
Planned Discharge Date 08/03/25 DS: Providers Provider Date of admission: 08/03/25 14:15 Primary care physician: Ross Álvarez MD Admitting Provider: Reji Kate MD Attending Provider on Admission: Reji Kate MD Consults: 08/02/25 16:26 Consult to Cardiology Stat Comment: A fib with RVR Consulting Provider: Héctor Hassan 08/02/25 18:44 Consult to Gastroenterology Routine Comment: Dysphagia Consulting Provider: Troy Vazquez Attending Provider on DC: Jakob Mcguire DO Discharging Provider: Jakob Mcguire DO DS: Diagnosis Problem List Completed Was Problem List Reviewed/Reconciled?: Yes Hospital Course Hospital Course Hospital course: Summary: Mendy Sanabria is a 80-year-old female with past medical history of type 2 diabetes and chronic back pain presented to ED on 08/02/2025, due to new onset A.fib with RVR. She was admitted. Given metoprolol, amidarone, and eliquis. ECHO was done. Patient was discharged with instructions to follow up outpatient. ED course: Vitals: 153/68, AL:130 RR 18, Temp 97.9F, 98% O2 sat on room air. Labs: WBC 6.7, Hgb 15.8, sodium 144, potassium 3.9, BUN 15, creatinine 1.1, eGFR 50, corrected calcium 10.3, glucose 88, troponin<0.020, BMP 87, TSH 3.31. EKG: Atrial fibrillation with RVR, rate 126, right bundle branch block. EKG @ 1527p. Atrial fibrillation, rate 86, right bundle branch block. CXR (08/02/2025): Mild vascular congestion. No lobar pneumonia. Recommend AP lordotic chest follow-up to exclude 8 mm pulmonary nodule left upper lobe Hospital Summary: Was given Metoprolol succinate 25 mg po qd, Amiodarone 200mg bid, and Eliquis 5mg po bid. ECHO was done and per Cardiology, she was okay to be discharged and follow up outpatient per cardiology recommendations.. Patient was discharged with Metoprolol succinate 25 mg po, Amiodarone 200mg po bid, Eliquis 5mg po bid, Follow up outpatient with [facility] and GI. Instructions: Please take metoprolol succinate 25 mg by mouth daily for Afib Please take amiodarone 200mg by mouth twice a day for Afib Please take Eliquis 5mg by mouth twice a day for Afib Continue all other home medications as prescribed Follow-up with your numerical analysis group manager, Dr. Hassan within 1-2 weeks of discharge Follow-up with Dr. Vazquez for prescheduled endoscopy Follow-up with your PCP within 1 week of discharge If your symptoms worsen or if you develop new chest pain, shortness of breath; dizziness or loss of consiousness - please come back to the ED immediately. Stable to discharge Home #Atrial fibrillation with RVR #Esophageal dysphagia #Non-insulin dependent type 2 diabetes #8 mm pulmonary nodule left upper lobe Assessment and plan discussed with my attending physician Dr. May Mcguire (PGY-1) - Internal medicine resident Time Spent with Patient Time attestation: Total time spent providing and/or coordinating discharge services: Time spent: Greater than 30 minutes Exam Vital Signs Temp Pulse Resp BP Pulse Ox O2 Del Method 97.9 F 69 20 110/69 98 Room Air 08/03/25 12:00 08/03/25 16:00 08/03/25 12:00 08/03/25 12:00 08/03/25 12:00 08/03/25 12:00 Narrative Exam General: No acute distress, well nourished, AAO x3 Eye: PERRL, EOMI, normal conjunctiva, no scleral icterus HENT: Normocephalic, atraumatic, hearing intact to conversation at normal volume, moist oral mucosa Neck: Supple, non-tender, no JVD, no lymphadenopathy Lungs: Non-labored respirations, symmetric chest rise, Clear to auscultate bilaterally, No wheezing, rhonchi, crackles Heart: Peripheral pulses intact bilaterally, Irregular rate, No murmurs Abdomen: Soft, non-tender, non-distended, no palpable masses Musculoskeletal: Normal range of motion and strength, No cyanosis or edema, No visible joint swelling Skin: Skin is warm, dry, bilateral LE rashes Psychiatric: Cooperative, appropriate mood and affect, Awake and alert, not agitated Neuro: Cranial nerves II-XII grossly intact. Strength 5/5 throughout. Sensations intact to light touch. Discharge Plan Plan Patient Disposition: HOME (Self Care) Care Plan Goals: Please take metoprolol succinate 25 mg by mouth daily for Afib Please take amiodarone 200mg by mouth twice a day for Afib Please take Eliquis 5mg by mouth twice a day for Afib Continue all other home medications as prescribed Follow-up with your numerical analysis group manager, Dr. Hassan within 1-2 weeks of discharge Follow-up with Dr. Vazquez for prescheduled endoscopy Follow-up with your PCP within 1 week of discharge If your symptoms worsen or if you develop new chest pain, shortness of breath; dizziness or loss of consiousness - please come back to the ED immediately. Prescriptions/Referrals Prescriptions/Med Rec: New amiodarone [Pacerone] 200 mg Tablet 200 mg PO BID 30 Days Qty: 60 0RF apixaban 5 mg tablet 5 mg PO BID 30 Days Qty: 60 0RF metoprolol succinate 25 mg Tablet Extended Release 24 Hr 25 mg PO QDAY 30 Days Qty: 30 0RF Continued amlodipine 5 mg tablet 5 mg PO QDAY hydrocodone-acetaminophen 10-325 mg tablet 1 tab PO Q6H PRN (Reason: pain) furosemide 20 mg tablet 20 mg PO QDAY ergocalciferol (vitamin D2) 1,250 mcg (50,000 unit) capsule 1,250 mcg PO QWEEK risedronate 35 mg tablet 35 mg PO QWEEK cinacalcet 60 mg tablet 30 mg PO QDAY Referrals: Troy Vazquez MD [Physician, Gastroenterology] Héctor Hassan MD [Physician, Cardiology] Ross Álvarez MD [Primary Care Provider, Family Practice] Patient/Caregiver Discharge Instructions Education Materials: AFL/Afib, Women and Heart Disease Tips ... Print Language: Jordanian Stand Alone Forms: Deandra Award Info., Patient Portal Info Letter Discharge Order Discharge Orders: Discharge (Routine); Ordered 08/03/25 Ordered By: Tod Romero Quality Discharge Quality Measures VTE prophylaxis Attestestation Attestation I have discussed and was present for the essential components of the discharge history, physical examination, diagnosis, and discharge treatment plan with the resident. I agree with the patient's discharge care as documented by the resident and amended herein by me. Torito Olvera, . The patient understood all discharge instructions, all questions were answered satisfactorily. The patient was instructed to return to the Emergency Department is symptoms worsened or persisted. Patient was stable, afebrile, tolerating p.o. intake at time of discharge home. Although this document has been carefully reviewed, there may still be some phonetic and other typographical errors. These errors are purely grammatical due to imperfections in the software program and should not be construed in any way to compromise the substance of the patient's medical care during this visit. Time Spent on discharge: 32 min
[2025-08-03] MEDS: ACETAMINOPHEN 325 MG TABLET 650 MG PO (19:45)
--- NOTE | 2025-08-03 23:06 | ESPR_ITS ---
Documentation for date of: 08/03/25 Subjective Subjective Interval history: Late entry for the note Heart rate controlled between 70s and 80s on metoprolol and amiodarone Will see the patient upon discharge as an outpatient and then reschedule the endoscopy Exam Vital Signs Temp Pulse Resp BP Pulse Ox O2 Del Method 97.0 F 74 23 H 125/74 98 Room Air 08/03/25 20:00 08/03/25 20:00 08/03/25 20:00 08/03/25 20:00 08/03/25 20:00 08/03/25 20:00 Objective Labs 08/03/25 05:10 08/03/25 05:10 Labs: Laboratory Results - last 24 hr 08/03/25 05:10 WBC 8.7 RBC 4.32 Hgb 13.5 D Hct 39.8 MCV 92 MCH 31.3 MCHC 33.9 RDW Std Deviation 40.8 Plt Count 194 Neut % (Auto) 65 Lymph % (Auto) 22 [facility] [facility] % (Auto) 11 Eos % (Auto) 2 Baso % (Auto) 1 Neut # (Auto) 5.7 Lymph # (Auto) 1.9 [facility] # (Auto) 1.0 H Eos # (Auto) 0.1 Baso # (Auto) 0.0 Immature Gran # (Auto) 0.02 H Absolute Nucleated RBC 0.00 Immature Gran % 0 Nucleated RBC % 0 PT 11.5 INR 1.1 APTT 30.8 Sodium 141 Potassium 4.6 D Chloride 107 Carbon Dioxide 25.2 Anion Gap 9 BUN 15 Creatinine 1.0 Estim Creat Clear Calc 47.4 L eGFR 56 L BUN/Creatinine Ratio [address] Glu mg/dL 103 Hemoglobin A1c 5.2 Calculated Osmolality 282 Calcium 9.3 Corrected Calcium 9.5 Phosphorus 3.6 Magnesium 2.1 Total Bilirubin 0.7 AST 18 ALT 7 L Alkaline Phosphatase 57 D Total Protein 6.6 Albumin 3.8 D Globulin 2.8 Albumin/Globulin Ratio 1.4 Impressions Impression: New onset atrial fibrillation with a bundle branch block Rate controlled with metoprolol and amiodarone Okay to discharge patient Outpatient workup Assessment & Plan A&P Narrative # New onset of cardiac arrhythmias in the form of atrial fibrillation with RVR Plan Called the ambulance to transfer the patient to the emergency room where she got subsequently admitted Procedure was canceled They will reschedule the procedure as an outpatient Other medical problems include Dysphagia Dyspepsia Essential hypertension Thank you very much for the opportunity to participate in care of this patient Time Spent With Patient Time: Total time spent is greater than 50% in coordination of care (as documented) at patient's floor/unit and/or counseling patient:
== END 2025-08-03 20:15 | disposition home or self-care (01) | DRG 310 ==
LOC: SERX 15:52 → SERHOLD 17:01 → S2NX 18:06
PROVIDERS: Admitting Provider Student in an Organized Health Care Education/Training Program; Emergency Provider Emergency Medicine; PCP Family Medicine; Visit Provider Student in an Organized Health Care Education/Training Program
DX: I48.91 Unspecified atrial fibrillation (principal); N18.9 Chronic kidney disease, unspecified; E11.22 Type 2 diabetes mellitus with diabetic chronic kidney disease; R91.1 Solitary pulmonary nodule; I12.9 Hypertensive chronic kidney disease with stage 1 through stage 4 chronic kidney disease, or unspecified chronic kidney disease; R13.14 Dysphagia, pharyngoesophageal phase; G89.29 Other chronic pain; E83.52 Hypercalcemia; I45.10 Unspecified right bundle-branch block; Z53.9 Procedure and treatment not carried out, unspecified reason; Z79.84 Long term (current) use of oral hypoglycemic drugs; Z79.899 Other long term (current) drug therapy; K45.8 Other specified abdominal hernia without obstruction or gangrene
CPT/HCPCS: 36415; 71045; 80053; 81001; 83036; 83735; 83880; 84100; 84443; 84484; 85025; 85610; 85730; 93005; 93306; G0378; J3490; A9270